=== PATIENT | female | born 1990 ===

== ENCOUNTER 2016-06-18 08:45 | Emergency (ER) | payer BC, OTHER ==
[2016-06-18 08:53] VITALS: RESP 18; TEMP 98.1
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
[2016-06-18 09:52] VITALS: BP 142/71; PULSE 79; O2SAT 99
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
== END 2016-06-18 09:55 | disposition home or self-care (01) ==
LOC: ED 08:45
DX: S80.01XA Contusion of right knee, initial encounter (principal); V49.50XA Passenger injured in collision with unspecified motor vehicles in traffic accident, initial encounter
CPT/HCPCS: 73560; 96372; 99285; J1885